=== PATIENT | male | born 1990 | race Two or more races ===

== ENCOUNTER 2016-04-28 08:15 | Emergency (ER) | payer SELFPAY ==
[~2016-04-28] VITALS: Ht 175.3 cm; Wt 95.3 kg
[2016-04-28] MEDS ORDERED: IV NS 0.9% 1,000 ML ONE (09:16)
[2016-04-28] MEDS ORDERED: IV SET PRIMARY 1 EA INFUS.SET MC ONE (09:16)
[2016-04-28 09:24] LABS: BASOPHILS % (AUTO) 0.2 % (0.0-2.0); DIFF TOTAL % 100 %; EOSINOPHILS # (AUTO) 0.2 /CMM (0.0-0.7); EOSINOPHILS % (AUTO) 2.6 % (0.0-6.0); HEMATOCRIT 46 % (39-51); HEMOGLOBIN 15.7 g/dL (13.5-17.5); LYMPHOCYTES # (AUTO) 1.6 /CMM (0.8-4.8); MEAN CORPUSCULAR HEMOGLOBIN 32 PG (26.0-33.0); MEAN CORPUSCULAR HGB CONC 34 g/dl (31.0-36.0); MEAN CORPUSCULAR VOLUME 93 fL (80-96); MONOCYTES # (AUTO) 0.5 /CMM (0.1-1.30); MONOCYTES % (AUTO) 7.5 % (2.0-12.0); NEUTROPHILS # (AUTO) 3.9 /CMM (1.8-8.9); NEUTROPHILS % (AUTO) 63.7 % (43.0-81.0); PLATELET COUNT (AUTO) 179 /CMM (150-450); RED BLOOD CELL COUNT(AUTO) 4.92 MIL/uL (4.5-6.0); WHITE BLOOD COUNT (AUTO) 6.1 K/uL (4.3-11.0)
[2016-04-28] MEDS ORDERED: IV NS 0.9% 1,000 ML BAG IV ONE (09:30)
[2016-04-28 09:35] LABS: CALCIUM, SERUM 8.9 mg/dL (8.5-10.1); CREATININE 0.8 mg/dL (0.6-1.3)
[2016-04-28] MEDS ORDERED: ACETAMINOPHEN ES 500 MG TABLET ONE (10:13)
[2016-04-28] MEDS ORDERED: ACETAMINOPHEN ES 500 MG TABLET PO ONE (10:30)
[2016-04-28 11:01] VITALS: BP 122/67
== END 2016-04-28 11:02 | disposition home or self-care (01) ==
LOC: ER 08:20
DX: R56.9 Unspecified convulsions (principal); F17.200 Nicotine dependence, unspecified, uncomplicated; Z88.8 Allergy status to other drugs, medicaments and biological substances
CPT/HCPCS: 36415; 80048-TC; 82962-TC; 85025-TC; A4606; J7030; Z7610